=== PATIENT | female | born 1990 | race African-American/Black ===

== ENCOUNTER 2019-05-18 17:04 | Emergency (ER) | payer MEDICAID, OTHER ==
[~2019-05-18] VITALS: Ht 165.1 cm; Wt 66.2 kg
[2019-05-18 17:30] VITALS: BP 121/87
== END 2019-05-19 00:38 | disposition left against medical advice (07) ==
LOC: ER 17:04
DX: R51 Headache (principal); Z53.21 Procedure and treatment not carried out due to patient leaving prior to being seen by health care provider
CPT/HCPCS: 81025